=== PATIENT | male | born 1995 | race Caucasian/White ===

== ENCOUNTER 2017-01-14 14:24 | Emergency (ER) | payer OTHER ==
[2017-01-14 14:50] VITALS: BP 120/72
--- NOTE | 2017-01-14 16:57 | XRay Report ---
FINAL REPORT EXAM: XR ANKLE 3+V LT HISTORY: lt ankle pain/injury TECHNIQUE: Three views left ankle PRIORS: None. FINDINGS: Ankle mortise is intact no evidence of joint space widening. No erosive or degenerative changes are identified. No evidence of joint effusion. There is soft tissue swelling greatest at the medial compartment. There is a tiny radiodense focus just distal to the medial malleolus which may reflect a small avulsion fracture IMPRESSION: Marked soft tissue swelling Possible small avulsion fracture seen just distal to the medial malleolus
--- NOTE | 2017-01-14 20:03 | Emergency Department Report ---
ED Lower Extremity HPI - General Chief Complaint: Extremity Injury, Lower Stated Complaint: FALL, LEFT FOOT INJURY Time Seen by Provider: 01/14/17 18:51 Source: patient Mode of arrival: Ambulatory Limitations: No Limitations - History of Present Illness Initial Comments: 21-year-old male past medical history none presents with complaint of left ankle pain. Patient states that approximately 3 days ago he was cleaning on top of a shed at home lost footing and jumped off top of shed onto his feet. Patient states that he slightly inverted his left ankle. Has had pain and swelling and ankle for last 3 days with some visible bruising. Patient states that walking is uncomfortable. Patient has a pair of crutches he has been using from home for the last 2 days. MD Complaint: leg injury, ankle injury Onset/Timin -: days(s) Injury: Ankle: Left Type of Injury: inversion Place: home Severity: moderate Severity scale (0 -10): 5 Worsens With: weight bearing, movement Context: jumping Associated Symptoms: swelling, able to partially bear weight Treatments Prior to Arrival: cold therapy, NSAIDS - Related Data Previous Rx's Medication Instructions Recorded Last Taken Type Acetaminophen/Codeine [Tylenol 1 tab PO Q6H PRN #10 tab 01/14/17 Unknown Rx /Codeine # 3 tab] Naproxen 500 mg PO BID PRN #30 tablet 01/14/17 Unknown Rx Allergies Allergy/AdvReac Type Severity Reaction Status Date / Time ceftriaxone [From Rocephin] Allergy Swelling Verified 01/14/17 14:46 ED Review of Systems ROS: Stated complaint: FALL, LEFT FOOT INJURY Other details as noted in HPI Constitutional: denies: chills, fever Eyes: denies: eye pain, eye discharge, vision change ENT: denies: ear pain, throat pain Respiratory: denies: cough, shortness of breath, wheezing Cardiovascular: denies: chest pain, palpitations Endocrine: no symptoms reported Gastrointestinal: denies: abdominal pain, nausea, diarrhea Genitourinary: denies: urgency, dysuria Musculoskeletal: as per HPI, joint swelling (left ankle). denies: back pain, arthralgia Skin: denies: rash, lesions Neurological: denies: headache, weakness, paresthesias Psychiatric: denies: anxiety, depression Hematological/Lymphatic: denies: easy bleeding, easy bruising ED Past Medical Hx - Past Medical History Previous Medical History?: No - Surgical History Past Surgical History?: Yes Additional Surgical History: hernia - Social History Smoking Status: Current Some Day Smoker Substance Use Type: Alcohol, Marijuana - Medications Home Medications: Home Medications Medication Instructions Recorded Confirmed Last Taken Type Acetaminophen/Codeine [Tylenol 1 tab PO Q6H PRN #10 tab 01/14/17 Unknown Rx /Codeine # 3 tab] Naproxen 500 mg PO BID PRN #30 tablet 01/14/17 Unknown Rx ED Physical Exam - General Limitations: No Limitations General appearance: alert, in no apparent distress - Head Head exam: Present: atraumatic, normocephalic - Eye Eye exam: Present: normal appearance, PERRL, EOMI - ENT ENT exam: Present: mucous membranes moist - Neck Neck exam: Present: normal inspection - Respiratory Respiratory exam: Present: normal lung sounds bilaterally. Absent: respiratory distress - Cardiovascular Cardiovascular Exam: Present: regular rate, normal rhythm. Absent: systolic murmur, diastolic murmur, rubs, gallop - GI/Abdominal GI/Abdominal exam: Present: soft, normal bowel sounds - Rectal Rectal exam: Present: deferred - Extremities Exam Extremities exam: Present: normal inspection - Expanded Lower Extremity Exam Left Hip exam: Present: normal inspection, full ROM Upper Leg exam: Present: normal inspection, full ROM Knee exam: Present: normal inspection, full ROM Lower Leg exam: Present: normal inspection, full ROM Ankle exam: Present: full ROM (dorsi and plantar flexion are intact on exam against resistance), tenderness, swelling, ecchymosis (swelling and bruising medial malleolus) Foot/Toe exam: Present: normal inspection, full ROM, swelling (swelling near upper medial ankle region) Neuro vascular tendon exam: Present: no vascular compromise (distal dorsalis pedis and posterior tibial pulses are intact) Gait: Positive: antalgic 1 - Pain on palpation here with bruising on medial aspect of ankle - Back Exam Back exam: Present: normal inspection - Neurological Exam Neurological exam: Present: alert, oriented X3, CN II-XII intact - Psychiatric Psychiatric exam: Present: normal affect, normal mood - Skin Skin exam: Present: warm, dry, intact, normal color. Absent: rash ED Course Vital Signs 01/14/17 14:47 Temperature 98.1 F Pulse Rate 80 Respiratory 16 Rate Blood Pressure 120/72 O2 Sat by Pulse 100 Oximetry ED Lower Extremity MDM - Medical Decision Making A/P: Left ankle avulsion fracture 1-patient placed in orthopedic boot for splinting 2-patient already has a pair of Crutch, nonweightbearing for now 3-RICE therapy, NSAIDs when necessary 4- patient referred to orthopedics. I advised patient to follow up within 1-2 weeks Critical care attestation.: If time is entered above; I have spent that time in minutes in the direct care of this critically ill patient, excluding procedure time. ED Disposition Clinical Impression: Ankle fracture Qualifiers: Encounter type: initial encounter Fracture type: closed Laterality: left Qualified Code(s): S82.892A - Other fracture of left lower leg, initial encounter for closed fracture Avulsion fracture of ankle Qualifiers: Encounter type: initial encounter Fracture type: closed Laterality: left Qualified Code(s): S82.892A - Other fracture of left lower leg, initial encounter for closed fracture Disposition: DC-01 TO HOME OR SELFCARE Is pt being admited?: No Does the pt Need Aspirin: No Condition: Stable Instructions: Ankle Fracture (ED), RICE Therapy (ED) Prescriptions: Acetaminophen/Codeine [Tylenol /Codeine # 3 tab] 1 tab PO Q6H PRN #10 tab PRN Reason: Pain Naproxen 500 mg PO BID PRN #30 tablet PRN Reason: Pain [facility] - 3-5 Days JESSICA FARLEY MD [Staff Physician] - 3-5 Days Time of Disposition: 21:00
--- NOTE | 2017-01-14 20:54 | XRay Report ---
FINAL REPORT EXAM: XR TIBIA FIBULA 2V LT HISTORY: s/p fall broke ankle, leg swollen TECHNIQUE: Left tibia-fibula two views PRIORS: None. FINDINGS: Again identified is soft tissue swelling at the ankle. A tiny bony density seen distal to the medial malleolus could reflect small flake or avulsion fracture Proximal tibia and fibula are unremarkable. No evidence for fracture or dislocation the knee. IMPRESSION: Soft tissue swelling at the ankle. Findings suspicious for small flake or avulsion fracture at medial malleolus No additional acute findings
--- NOTE | 2017-01-14 20:57 | XRay Report ---
FINAL REPORT EXAM: XR FOOT 3+V LT HISTORY: pain broke ankle ? foot fracture TECHNIQUE: 3 views Left foot PRIORS: None. FINDINGS: No fracture or dislocation identified. Joint spaces are within normal limits. No erosive bony change identified. No bony lesions are identified. IMPRESSION: Negative foot series
== END 2017-01-14 21:17 | disposition home or self-care (01) ==
LOC: ED 14:24
DX: S82.892A Other fracture of left lower leg, initial encounter for closed fracture (principal); F17.200 Nicotine dependence, unspecified, uncomplicated; F12.10 Cannabis abuse, uncomplicated; Z88.8 Allergy status to other drugs, medicaments and biological substances; W17.89XA Other fall from one level to another, initial encounter; Y93.39 Activity, other involving climbing, rappelling and jumping off; Y92.89 Other specified places as the place of occurrence of the external cause; Y99.8 Other external cause status
CPT/HCPCS: 99284